=== PATIENT | female | born 1995 | race Native Hawaiian/Other Pacific Islander ===

== ENCOUNTER 2022-07-18 19:10 | Emergency (ER) | payer OTHER ==
[~2022-07-18] VITALS: Ht 180.3 cm; Wt 98.4 kg
[2022-07-18 21:05] LABS: PLATELET COUNT 266 K/uL (152-353)
[2022-07-18 22:07] VITALS: BP 125/69; TEMP 99
== END 2022-07-18 22:07 | disposition home or self-care (01) ==
LOC: ED 19:10
PROVIDERS: Family Medicine
DX: F15.10 Other stimulant abuse, uncomplicated (principal); L02.415 Cutaneous abscess of right lower limb
CPT/HCPCS: 36415; 80307; 81002; 85027; 87040; 96372; 99283; J2930

== ENCOUNTER 2022-08-17 22:29 | Emergency (ER) | payer OTHER ==
[~2022-08-17] VITALS: Ht 180.3 cm; Wt 94.3 kg
[2022-08-17 22:29] VITALS: TEMP 98.7
[2022-08-18 00:45] VITALS: BP 111/66
== END 2022-08-18 00:45 | disposition home or self-care (01) ==
LOC: ED 22:29
DX: F20.9 Schizophrenia, unspecified (principal); F12.90 Cannabis use, unspecified, uncomplicated; F15.929 Other stimulant use, unspecified with intoxication, unspecified
CPT/HCPCS: 80307; 81000; 99283; J1885

== ENCOUNTER 2022-09-30 16:35 | Emergency (ER) | payer OTHER ==
[~2022-09-30] VITALS: Ht 180.3 cm; Wt 98.9 kg
[2022-09-30 19:22] VITALS: BP 119/77; TEMP 97.7
== END 2022-09-30 19:22 | disposition home or self-care (01) ==
LOC: ED 16:35
PROC: 0JQH0ZZ Repair Left Lower Arm Subcutaneous Tissue and Fascia, Open Approach (ICD-10-PCS; principal; 2022-09-30)
DX: S51.812A Laceration without foreign body of left forearm, initial encounter (principal); W25.XXXA Contact with sharp glass, initial encounter
CPT/HCPCS: 81025; 90715; 99283

== ENCOUNTER 2022-11-26 13:52 | Emergency (ER) | payer OTHER ==
[~2022-11-26] VITALS: Ht 180.3 cm; Wt 97.1 kg
[2022-11-26 13:55] VITALS: BP 117/78; TEMP 97.2
[2022-11-26 14:47] LABS: PLATELET COUNT 225 K/uL (152-353)
[2022-11-26 14:53] LABS: POTASSIUM 3.7 mmol/L (3.6-5.2)
== END 2022-11-26 16:20 | disposition home or self-care (01) ==
LOC: ED 13:52
PROVIDERS: Family Medicine
DX: N83.209 Unspecified ovarian cyst, unspecified side (principal); Z76.0 Encounter for issue of repeat prescription
CPT/HCPCS: 80053; 81002; 81025; 85027; 99283